=== PATIENT | female | born 1950 | race Caucasian/White ===

== ENCOUNTER 2022-09-11 06:37 | Day surgery (SDC) | payer MEDICARE, OTHER ==
[~2022-09-11] VITALS: Ht 157.5 cm; Wt 75.9 kg
[2022-09-11] MEDS ORDERED: LIDOCAINE 2% 11 ML JELLY TP ONE (06:38)
[2022-09-11] MEDS ORDERED: LIDOCAINE 4% 50 ML SOLUTION TP ONE (06:38)
[2022-09-11] MEDS ORDERED: ALBUTEROL SULFATE 2.5 MG/0.5 ML NEB SOLUTION NEB ONE (06:38)
[2022-09-11] MEDS ORDERED: BENZOCAINE 20% 50 MCG/SPRAY 57 GM TP ONE (06:38)
[2022-09-11] MEDS ORDERED: SODIUM CHLORIDE 0.9% 1,000 ML IV ONE (07:00)
[2022-09-11] MEDS ORDERED: SODIUM CHLORIDE 0.9% 1,000 ML ONE (07:22)
[2022-09-11] MEDS ORDERED: AMLO10TA55 PO (07:30)
[2022-09-11] MEDS ORDERED: PRAV20TA4 PO (07:30)
[2022-09-11] MEDS ORDERED: CHOL100062 PO (07:30)
[2022-09-11] MEDS ORDERED: MIDAZOLAM HCL 2 MG/2 ML VIAL ONE (08:38)
[2022-09-11] MEDS ORDERED: FentaNYL CITRATE PF 100 MCG/2 ML VIAL ONE (08:38)
[2022-09-11] MEDS ORDERED: MethylPREDNISolone SOD SUCC 125 MG/2 ML VIAL ONE (09:33)
[2022-09-11] MEDS ORDERED: MethylPREDNISolone SOD SUCC 125 MG/2 ML VIAL IVP ONE (09:45)
[2022-09-11] MEDS ORDERED: ALBU18HF12 IH (14:07)
[2022-09-11] MEDS ORDERED: DICL100G31 TP (14:07)
[2022-09-11] MEDS ORDERED: MONT-40 PO (14:07)
[2022-09-11] MEDS ORDERED: AZEL137S8 NASAL (14:07)
[2022-09-11] MEDS ORDERED: FLUT1AER IH (14:07)
[2022-09-11] MEDS ORDERED: FAMO20 PO (14:07)
== END 2022-09-11 14:00 | disposition home or self-care (01) ==
LOC: SURGERY 06:37
PROVIDERS: ATTEND Internal Medicine Critical Care Medicine
DX: R05.3 Chronic cough (principal); J98.09 Other diseases of bronchus, not elsewhere classified; J98.8 Other specified respiratory disorders; R91.1 Solitary pulmonary nodule; I10 Essential (primary) hypertension; Z90.49 Acquired absence of other specified parts of digestive tract; D64.9 Anemia, unspecified
CPT/HCPCS: 31623; 87206; 87101; 87220; 87070; 31624; 94640; 71045; 87015; J3010; J2250; J2930; Q9967; J7030; 88112; J7613; Z7610